=== PATIENT | female | born 1995 | race Caucasian/White ===

== ENCOUNTER 2020-10-27 08:00 | Inpatient (IN) | payer OTHER ==
[~2020-10-27] VITALS: Ht 160 cm; Wt 64.0 kg
--- NOTE | 2020-10-27 08:38 | NUR ---
Pt report possible SROM at 205410/26/20. Reports having a gush of fluid, got up to void, stood up from toilet and had fluid leak down her leg. Nitrazine equivocal.
--- NOTE | 2020-10-27 08:44 | NUR ---
Sushila Clifford CNM updated, order to admit patient.
[2020-10-27] MEDS ORDERED: FERREX 150150 M1 PO (09:10)
[2020-10-27] MEDS ORDERED: PRENATAL TABLE1 EAC2 PO (09:10)
[2020-10-27 09:43] LABS: BASOPHILS ABSOLUTE AUTO 0.03 K/mm3 (0.00-0.23); BASOPHILS PERCENT AUTO 0 % (0-2); EOSINOPHILS ABSOLUTE AUTO 0.15 K/mm3 (0.00-0.68); EOSINOPHILS PERCENT AUTO 2 % (0-6); Hematocrit 35.5 % (33.0-51.0); Hemoglobin 12.2 g/dL (11.5-16.0); IMMATURE GRAN ABSOLUTE AUTO 0.04 K/mm3 (0.00-0.10); IMMATURE GRAN PERCENT AUTO 0 % (0-1); LYMPHOCYTES ABSOLUTE AUTO 1.63 K/mm3 (0.84-5.20); LYMPHOCYTES PERCENT AUTO 18 % (21-46); MONOCYTES ABSOLUTE AUTO 0.76 K/mm3 (0.16-1.47); MONOCYTES PERCENT AUTO 9 % (4-13); Mean Corpuscular HGB Conc 34.4 g/dL (31.5-36.5); Mean Corpuscular Volume 87 fL (80-100); Mean Platelet Volume 10.9 fL (9.1-12.4); NEUTROPHILS ABSOLUTE AUTO 6.38 K/mm3 (1.96-9.15); NEUTROPHILS PERCENT AUTO 71 % (41-73); Platelet Count 160 K/mm3 (150-400); RDW Coefficient Variation 12.3 % (11.7-14.2); RDW Standard Deviation 39.3 fL (35.1-46.3); Red Blood Cell Count 4.07 M/mm3 (3.80-5.20); White Blood Cell Count 8.99 K/mm3 (4.00-11.30)
[2020-10-27 10:06] LABS: SARS-Cov-2 (COVID-19) PCR, MMC NEGATIVE (NEGATIVE)
--- NOTE | 2020-10-28 12:41 | NUR ---
1230: UP OOB TO SHOWERED. JAZMINE WELL. UNABLE TO VOID AT THIS TIME
--- NOTE | 2020-10-28 13:56 | NUR ---
UP TO BRP. VOIDED. JAZMINE SELF CARE WELL.
--- NOTE | 2020-10-28 20:28 | NUR ---
Mom was feeding baby.
--- NOTE | 2020-10-29 00:02 | NUR ---
Checked on patient. Mom feeding baby,will call when done. Vitals will be done then.
[2020-10-29 05:38] LABS: BASOPHILS ABSOLUTE AUTO 0.03 K/mm3 (0.00-0.23); BASOPHILS PERCENT AUTO 0 % (0-2); EOSINOPHILS ABSOLUTE AUTO 0.13 K/mm3 (0.00-0.68); EOSINOPHILS PERCENT AUTO 1 % (0-6); Hematocrit 32.4 % (33.0-51.0); Hemoglobin 11.1 g/dL (11.5-16.0); IMMATURE GRAN ABSOLUTE AUTO 0.06 K/mm3 (0.00-0.10); IMMATURE GRAN PERCENT AUTO 0 % (0-1); LYMPHOCYTES ABSOLUTE AUTO 2.23 K/mm3 (0.84-5.20); LYMPHOCYTES PERCENT AUTO 15 % (21-46); MONOCYTES ABSOLUTE AUTO 0.78 K/mm3 (0.16-1.47); MONOCYTES PERCENT AUTO 5 % (4-13); Mean Corpuscular HGB 30.2 pg (26.0-34.0); Mean Corpuscular HGB Conc 34.3 g/dL (31.5-36.5); Mean Corpuscular Volume 88 fL (80-100); Mean Platelet Volume 10.8 fL (9.1-12.4); NEUTROPHILS ABSOLUTE AUTO 12.03 K/mm3 (1.96-9.15); NEUTROPHILS PERCENT AUTO 79 % (41-73); Platelet Count 172 K/mm3 (150-400); RDW Coefficient Variation 12.9 % (11.7-14.2); RDW Standard Deviation 40.9 fL (35.1-46.3); Red Blood Cell Count 3.68 M/mm3 (3.80-5.20); White Blood Cell Count 15.26 K/mm3 (4.00-11.30)
== END 2020-10-29 14:40 | disposition home or self-care (01) | DRG 807 ==
LOC: OBS 08:00 → BC 08:56
PROVIDERS: Advanced Practice Midwife; ADMIT Registered Nurse Community Health
PROC: 10E0XZZ Delivery of Products of Conception, External Approach (ICD-10-PCS; principal; 2020-10-28)
PROC: 10907ZC Drainage of Amniotic Fluid, Therapeutic from Products of Conception, Via Natural or Artificial Opening (ICD-10-PCS; 2020-10-28)
PROC: 3E0R3BZ Introduction of Anesthetic Agent into Spinal Canal, Percutaneous Approach (ICD-10-PCS; 2020-10-28)
PROC: 00HU33Z Insertion of Infusion Device into Spinal Canal, Percutaneous Approach (ICD-10-PCS; 2020-10-28)
DX: O42.02 Full-term premature rupture of membranes, onset of labor within 24 hours of rupture (principal); Z37.0 Single live birth; O48.0 Post-term pregnancy; O76 Abnormality in fetal heart rate and rhythm complicating labor and delivery; O77.0 Labor and delivery complicated by meconium in amniotic fluid; O69.1XX0 Labor and delivery complicated by cord around neck, with compression, not applicable or unspecified; O70.0 First degree perineal laceration during delivery; Z3A.40 40 weeks gestation of pregnancy
CPT/HCPCS: 36415; 51702; 85025; 86850; 86900; 86901; A9270; J0290; J1885; J2001; J2210; J2405; J2590; J3010; J7120; U0004

== ENCOUNTER 2023-08-03 23:16 | Inpatient (IN) | payer OTHER ==
[~2023-08-03] VITALS: Ht 162.6 cm; Wt 66.8 kg
[~2023-08-03 23:16] MED LIST: FERREX 150150 M1 PO; PRENATAL TABLE1 EAC2 PO
[2023-08-03 23:28] VITALS: BP 128/84
[2023-08-04] VITALS (33 sets, daily range): BP systolic 96–141; BP diastolic 51–88
[2023-08-04] MEDS ORDERED: FentaNYL Citrate 50 MCG/ML 2 ML Injection IV PRN (01:25)
[2023-08-04] MEDS ORDERED: Calcium Carbonate 500 MG Tab Chew PO PRN (01:25)
[2023-08-04] MEDS ORDERED: Acetaminophen 500 MG Tab PO PRN (01:25)
[2023-08-04] MEDS ORDERED: Ondansetron HCl 2 MG / ML 2ML Vial IV PRN (01:25)
[2023-08-04] MEDS ORDERED: FentaNYL 2mcg/ml-Bup 0.1% Epd 250 ML EPI PRN (01:30)
[2023-08-04] MEDS ORDERED: Castor Oil 59.146 ML BTL TOP SCH (01:30)
[2023-08-04] MEDS ORDERED: Lactated Ringer's 1,000 ML IV PRN (01:30)
[2023-08-04] MEDS ORDERED: Misoprostol 200 MCG Tab PR SCH (01:30)
[2023-08-04] MEDS ORDERED: Bupivacaine HCl 2.5 MG/ML 10ML P/F Injection XX SCH (01:30)
[2023-08-04] MEDS ORDERED: Methylergonovine Maleate 0.2MG / ML 1ML Amp IM SCH (01:30)
[2023-08-04] MEDS ORDERED: Oxytocin 10 Unit / ML Vial IM SCH (01:30)
[2023-08-04] MEDS ORDERED: Bupivacaine 0.5% HCl 5 MG/ML 30MLVIAL XX SCH (01:30)
[2023-08-04] MEDS ORDERED: Lidocaine HCl 1% 30 ML SDV XX SCH (01:30)
[2023-08-04] MEDS ORDERED: LR Oxytocin 20 Units 1,000 ML IV SCH ×2 (01:30→10:20)
[2023-08-04] MEDS ORDERED: ePHEDrine Sulfate 50 MG/ML 1ML Injection XX PRN (01:30)
[2023-08-04] MEDS ORDERED: Lactated Ringer's 1,000 ML IV SCH ×3 (01:30→10:20)
[2023-08-04 04:25] LABS: BASOPHILS ABSOLUTE AUTO 0.01 K/mm3 (0.00-0.23); BASOPHILS PERCENT AUTO 0 % (0-2); EOSINOPHILS ABSOLUTE AUTO 0.12 K/mm3 (0.00-0.68); EOSINOPHILS PERCENT AUTO 1 % (0-6); Hematocrit 31.3 % (33.0-51.0); Hemoglobin 10.2 g/dL (11.5-16.0); IMMATURE GRAN ABSOLUTE AUTO 0.05 K/mm3 (0.00-0.10); IMMATURE GRAN PERCENT AUTO 1 % (0-1); LYMPHOCYTES ABSOLUTE AUTO 1.76 K/mm3 (0.84-5.20); LYMPHOCYTES PERCENT AUTO 18 % (21-46); MONOCYTES ABSOLUTE AUTO 0.57 K/mm3 (0.16-1.47); MONOCYTES PERCENT AUTO 6 % (4-13); Mean Corpuscular HGB 27.4 pg (26.0-34.0); Mean Corpuscular HGB Conc 32.6 g/dL (31.5-36.5); Mean Corpuscular Volume 84 fL (80-100); Mean Platelet Volume 10.7 fL (9.1-12.4); NEUTROPHILS ABSOLUTE AUTO 7.34 K/mm3 (1.96-9.15); NEUTROPHILS PERCENT AUTO 75 % (41-73); Platelet Count 168 K/mm3 (150-400); RDW Coefficient Variation 12.5 % (11.7-14.2); RDW Standard Deviation 37.9 fL (35.1-46.3); Red Blood Cell Count 3.72 M/mm3 (3.80-5.20); White Blood Cell Count 9.85 K/mm3 (4.00-11.30)
[2023-08-04] MEDS ORDERED: Benzocaine Topical Anesthetic Spray 60GM TOP PRN (10:15)
[2023-08-04] MEDS ORDERED: OxyCODONE 5 mg/Acetamin 325 mg TABLET PO PRN (10:15)
[2023-08-04] MEDS ORDERED: Diphth,Pertuss(Acell),Tet Vac 0.5 ML VIAL IM ONE (10:15)
[2023-08-04] MEDS ORDERED: Docusate Sodium 100 MG Cap PO PRN (10:15)
[2023-08-04] MEDS ORDERED: Lanolin Cream TOP PRN (10:15)
[2023-08-04] MEDS ORDERED: Ibuprofen 400 MG Tab PO PRN (10:15)
[2023-08-04] MEDS ORDERED: Witch Hazel/Glycerin PADS TOP PRN (10:15)
[2023-08-04] MEDS ORDERED: Misoprostol 200 MCG Tab PO PRN (10:20)
[2023-08-04] MEDS ORDERED: Methylergonovine Maleate 0.2MG / ML 1ML Amp IM PRN (10:20)
[2023-08-04] MEDS ORDERED: Ketorolac Tromethamine 30mg Vial IV PRN (11:00)
[2023-08-04] MEDS ORDERED: Ketorolac Tromethamine 30mg Vial IV ONE (11:00)
[2023-08-05 00:37] VITALS: BP 120/79
[2023-08-05 04:09] VITALS: BP 113/79
[2023-08-05 08:16] VITALS: BP 119/70
[2023-08-05] MEDS ORDERED: FLU VACC QS2023-24(6MOS UP)/PF 60 MCG/0.5 ML SYRINGE IM PRN (08:40)
[2023-08-05] MEDS ORDERED: Prenatal Vit/FE Fumarate/FA 1 Tab PO SCH (09:00)
[2023-08-05 11:12] VITALS: BP 122/75
== END 2023-08-05 12:20 | disposition home or self-care (01) | DRG 807 ==
LOC: OBS 23:16 → BC 23:18 → OBS 08-04 01:22 → BC 08-04 01:23
PROVIDERS: ADMIT Advanced Practice Midwife
PROC: 10E0XZZ Delivery of Products of Conception, External Approach (ICD-10-PCS; principal; 2023-08-04)
PROC: 3E0R3BZ Introduction of Anesthetic Agent into Spinal Canal, Percutaneous Approach (ICD-10-PCS; 2023-08-04)
PROC: 00HU33Z Insertion of Infusion Device into Spinal Canal, Percutaneous Approach (ICD-10-PCS; 2023-08-04)
PROC: 10907ZC Drainage of Amniotic Fluid, Therapeutic from Products of Conception, Via Natural or Artificial Opening (ICD-10-PCS; 2023-08-04)
DX: O48.0 Post-term pregnancy (principal); Z37.0 Single live birth; Z3A.40 40 weeks gestation of pregnancy
CPT/HCPCS: 36415; 51702; 59025; 85025; 86850; 86900; 86901; J1885; J7120